=== PATIENT | male | born 2000 | race Two or more races ===

== ENCOUNTER 2019-09-17 13:50 | Emergency (ER) | payer SELFPAY ==
[~2019-09-17] VITALS: Ht 175.3 cm; Wt 90.7 kg
--- NOTE | 2019-09-17 14:00 | NUR ---
NATALIYA, [facility],PER PATIENT HE HAD VODKA AND SMOKED MARIJUANA. ON ROOM AIR, BREATHING EVENLY AND UNLABORED. CONNECTED TO THE MONITOR AND PULSE OX. WILL CONTINUE TO MONITOR ACCORDINGLY.
--- NOTE | 2019-09-17 14:20 | NUR ---
CALLED FOR MEAL TRAY
[2019-09-17] MEDS ORDERED: IV NS 0.9% 1,000 ML BAG IV ONE (14:30)
[2019-09-17 15:51] VITALS: BP 125/81
--- NOTE | 2019-09-17 15:51 | NUR ---
Patient discharged to home in stable condition. Written and verbal after care instructions given. Patient verbalizes understanding of instruction.IV removed. Catheter intact and site benign. Pressure and 4x4 applied to site. No bleeding noted.
== END 2019-09-17 15:51 | disposition home or self-care (01) ==
LOC: ER 13:50
DX: F19.10 Other psychoactive substance abuse, uncomplicated (principal); F10.10 Alcohol abuse, uncomplicated; F12.10 Cannabis abuse, uncomplicated; E86.0 Dehydration; Y90.9 Presence of alcohol in blood, level not specified
CPT/HCPCS: 96360; 99283; J7030